=== PATIENT | male | born 1995 | race Caucasian/White ===

== ENCOUNTER 2018-12-09 16:15 | Emergency (ER) | payer MEDICAID ==
[~2018-12-09] VITALS: Ht 165.1 cm; Wt 52.6 kg
--- NOTE | 2018-12-09 16:15 | NUR ---
PT BIB [facility] FROM HOME,ANXIETY/PARANOIA AFTER USING [facility], PT IS AAOX3, NOT IN RESPIRATORY DISTRESS, V/S STABLE, KEPT RESTED AND COMFORTABLE. AWAITING ER MD FOR EVAL.
--- NOTE | 2018-12-09 16:20 | NUR ---
PT IS RESTLESS KEEP PACING IN THE ROOM AND UNABLE TO LAYDOWN ON THE BED OR SIT STILL.
--- NOTE | 2018-12-09 17:54 | NUR ---
SEEN AND EXAMINED BY DR. SOTELO.
[2018-12-09] MEDS ORDERED: LORAZEPAM 1 MG TABLET PO ONE (18:00)
[2018-12-09] MEDS ORDERED: LORAZEPAM 1 MG TABLET ONE (18:04)
--- NOTE | 2018-12-09 18:07 | NUR ---
LABS DRAWNED AND SENT TO LAB.
--- NOTE | 2018-12-09 18:07 | NUR ---
URINAL GIVEN BUT UNABLE TO OBTAIN URINE SPECIMEN.
[2018-12-09 18:13] LABS: BASOPHILS % (AUTO) 0.4 % (0.0-2.0); EOSINOPHILS % (AUTO) 0.3 % (0.0-6.0); HEMATOCRIT 49 % (39-51); HEMOGLOBIN 16.9 g/dL (13.5-17.5); LYMPHOCYTES # (AUTO) 2.4 /CMM (0.8-4.8); MEAN CORPUSCULAR HGB CONC 34 g/dl (31.0-36.0); MEAN CORPUSCULAR VOLUME 91 fL (80-96); MONOCYTES # (AUTO) 0.4 /CMM (0.1-1.30); MONOCYTES % (AUTO) 5.1 % (2.0-12.0); NEUTROPHILS # (AUTO) 5.6 /CMM (1.8-8.9); NEUTROPHILS % (AUTO) 66.2 % (43.0-81.0); PLATELET COUNT (AUTO) 319 /CMM (150-450); WHITE BLOOD COUNT (AUTO) 8.5 K/uL (4.3-11.0)
[2018-12-09 18:23] LABS: CALCIUM, SERUM 9.8 mg/dL (8.5-10.1); CARBON DIOXIDE 27 mmol/L (21-32); CHLORIDE 103 mmol/L (98-107); GLUCOSE 103 mg/dL (74-106); POTASSIUM 3.2 mmol/L (3.5-5.1); SODIUM SERUM 139 mmol/L (136-145); UREA NITROGEN, BLOOD 15 mg/dL (7-18)
[2018-12-09 18:29] LABS: ALANINE AMINOTRANSFERASE 21 U/L (12-78); ALCOHOL, BLOOD < 3 mg/dL (0-0); ALKALINE PHOSPHATASE 98 U/L (46-116); ASPARTATE AMINOTRANSFERASE 15 U/L (15-37); BILIRUBIN,DIRECT 0.3 mg/dL (0.0-0.2); BILIRUBIN,TOTAL 2.5 mg/dL (0.2-1.0); TOTAL PROTEIN, SERUM 8.1 g/dL (6.4-8.2)
[2018-12-09 18:30] LABS: ACETAMINOPHEN 0 ug/ml (10-30); SALICYLATE < 0.2 mg/dL (2.8-20.0)
--- NOTE | 2018-12-09 18:51 | NUR ---
AWAITING EAR[facility] [employer] COORDINATOR FOR EVAL.
--- NOTE | 2018-12-09 19:16 | NUR ---
REPORT GIVEN TO KENNETH PHILLIPS FOR JOSE.
--- NOTE | 2018-12-09 19:33 | NUR ---
ABLE TO COLLECT URINE SMALL AMOUNT SENT TO LAB.
[2018-12-09] MEDS ORDERED: OLANZAPINE 5 MG TABLET ONE (19:47)
[2018-12-09] MEDS ORDERED: OLANZAPINE 5 MG TABLET PO ONE (20:00)
[2018-12-09 20:07] LABS: APPEARANCE,URINE Clear (CLEAR); BILIRUBIN,URINE Negative (NEGATIVE); BLOOD, URINE Negative Ery/uL (NEGATIVE); COLOR,URINE Light yellow (YELLOW); KETONES,URINE Negative (NEGATIVE); LEUKOCYTE ESTERASE ,URINE Negative (NEGATIVE); NITRITE, URINE Negative (NEGATIVE); PROTEIN,URINE Negative (NEGATIVE); UGLUCOSE Negative (NEGATIVE); UROBILINOGEN,URINE 0.2 EU/dL (0.2)
--- NOTE | 2018-12-09 21:22 | NUR ---
Patient discharged to home in stable condition. Written and verbal after care instructions given. Patient's family member verbalizes understanding of instruction. Family member along with Pt taken to the lobby. Pt taken to lobby via WC to wait for ride home. VSS.
[2018-12-09 21:25] VITALS: BP 121/93
== END 2018-12-09 21:26 | disposition home or self-care (01) ==
LOC: ER 16:17
DX: F19.959 Other psychoactive substance use, unspecified with psychoactive substance-induced psychotic disorder, unspecified (principal); F15.10 Other stimulant abuse, uncomplicated; F12.10 Cannabis abuse, uncomplicated; F17.210 Nicotine dependence, cigarettes, uncomplicated; Z60.2 Problems related to living alone
CPT/HCPCS: 36415; 80048; 80076; 80305; 80307; 80329; 81001; 85025; 99284; A4606; G0480; Z7610; 81000-TC